=== PATIENT | male | born 1955 | race Caucasian/White ===

== ENCOUNTER 2019-07-03 08:00 | Outpatient (CLI) | payer MEDICARE, MEDICAID | END 2019-07-03 23:59 | LOC: LAB.R 08:00 | PROVIDERS: ATTEND Physician Assistant Medical | DX: R35.0 Frequency of micturition (principal) | CPT/HCPCS: 81001; 81003; 87086 ==

== ENCOUNTER 2019-07-03 08:00 | Outpatient (CLI) | payer MEDICARE, MEDICAID ==
[2019-07-03 19:14] LABS: BILIRUBIN,URINE NEGATIVE (NEGATIVE); GLUCOSE, URINE (UA) NEGATIVE (NEGATIVE); KETONES,URINE (UA) NEGATIVE (NEGATIVE); LEUKOCYTE ESTERASE, URINE TRACE (NEGATIVE); NITRITE,URINE NEGATIVE (NEGATIVE); OCCULT BLOOD,URINE LARGE (NEGATIVE); PROTEIN,URINE NEGATIVE (NEGATIVE); UROBILINOGEN,URINE 0.2 (NORMAL) E.U./dL (NORMAL)
[2019-07-03 20:12] LABS: AMORPHOUS SEDIMENT,UR Moderate /LPF; BACTERIA,URINE Rare /HPF (None Seen); CLARITY,URINE CLOUDY (CLEAR); SQUAMOUS EPITHELIAL CELL,UR NONE SEEN (<= Few)
== END 2019-07-03 23:59 ==
LOC: LAB.R 08:00
PROVIDERS: ATTEND Physician Assistant Medical
DX: R35.0 Frequency of micturition (principal)
CPT/HCPCS: 81001; 87086

== ENCOUNTER 2019-07-05 17:16 | Emergency (ER) | payer MEDICARE, MEDICAID ==
[2019-07-05 17:32] VITALS: BP 122/86
[2019-07-05 17:45] LABS: BILIRUBIN,URINE NEGATIVE (NEGATIVE); GLUCOSE, URINE (UA) NEGATIVE (NEGATIVE); KETONES,URINE (UA) NEGATIVE (NEGATIVE); LEUKOCYTE ESTERASE, URINE NEGATIVE (NEGATIVE); NITRITE,URINE NEGATIVE (NEGATIVE); OCCULT BLOOD,URINE LARGE (NEGATIVE); PROTEIN,URINE NEGATIVE (NEGATIVE); UROBILINOGEN,URINE 1 (NORMAL) E.U./dL (NORMAL)
[2019-07-05 17:50] LABS: CLARITY,URINE CLOUDY (CLEAR)
--- NOTE | 2019-07-05 17:58 | ED Physician Documentation ---
History of Present Illness - Stated complaint Stated Complaint: NOT EATING/MHE - Chief complaint Chief Complaint: MHE - History obtained from History obtained from: Patient - History of Present Illness Timing: Unknown Pain level max: 0 Pain level now: 0 - Additonal information Additional information: Patient is a 64-year-old male who lives in an adult family home. He states that he has a history of throat cancer. His caregiver came into the triage area, dropped him off and told the hotel front desk clerk that they are concerned that he is not sleeping well and eating normally. He says that he does not like the food and it tastes like there is "[place]" in it. He denies feeling suicidal or homicidal. Denies any hallucinations. He states that he is on no medications. Nothing makes it better or worse. The caregiver left the emergency department immediately after triage. No further history is available to me at this time. The caregiver came back and states that she is mainly concerned that he is dehydrated. He is not homicidal or suicidal. He does seem more disinterested in activity recently. She states that he has very poor memory at baseline and there are no changes. He is not hallucinating. Nothing makes it better or worse. Review of Systems Ten Systems: 10 systems reviewed and negative Constitutional: denies: Fever, Chills Ears: denies: Ear pain Nose: denies: Rhinorrhea / runny nose, Congestion Respiratory: denies: Cough GI: denies: Abdominal Pain, Nausea, Vomiting, Diarrhea Skin: denies: Rash Musculoskeletal: denies: Neck pain, Back pain Neurologic: denies: Focal weakness, Numbness, Headache PD PAST MEDICAL HISTORY - Past Medical History Past Medical History: No - Past Surgical History Past Surgical History: No - Allergies Allergies/Adverse Reactions: Allergies Allergy/AdvReac Type Severity Reaction Status Date / Time No Known Drug Allergies Allergy Verified 07/05/19 17:26 - Living Situation Living Arrangement: reports: [facility] ([facility]) - Social History Does the pt smoke?: No Does the pt drink ETOH?: No Does the pt have substance abuse?: No PD ED PE NORMAL - Vitals Vital signs reviewed: Yes - General General: Alert and oriented X 3, No acute distress, Well developed/nourished - HEENT HEENT: Moist mucous membranes, Pharynx benign - Neck Neck: Supple, no meningeal sign - Cardiac Cardiac: RRR, Strong equal pulses - Respiratory Respiratory: No respiratory distress, Clear bilaterally - Abdomen Abdomen: Soft, Non tender, Non distended - Derm Derm: Warm and dry, No rash - Extremities Extremities: No edema - Neuro Neuro: Alert and oriented X 3 - Psych Psych: Normal mood, Normal affect Results - Vitals Vitals: Vital Signs - 24 hr 07/05/19 17:26 Temperature 36.5 C Heart Rate 79 Respiratory 14 Rate Blood Pressure 122/86 H O2 Saturation 100 Oxygen O2 Source Room air - Labs Labs: Laboratory Tests 07/05/19 07/05/19 07/05/19 17:30 17:30 18:22 WBC 8.6 RBC 4.52 L Hgb 12.6 L Hct 38.4 L MCV 85.0 MCH 27.9 MCHC 32.8 RDW 13.3 Plt Count 184 MPV 9.5 Neut # (Auto) 5.4 Lymph # (Auto) 2.2 [place] # (Auto) 0.6 Eos # (Auto) 0.0 Baso # (Auto) 0.1 Absolute Nucleated RBC 0.00 Nucleated RBC % 0.0 Sodium Potassium Chloride Carbon Dioxide Anion Gap BUN Creatinine Estimated GFR (MDRD) Glucose Calcium Total Bilirubin AST ALT Alkaline Phosphatase Total Protein Albumin Globulin Albumin/Globulin Ratio Lipase TSH Urine Color YELLOW Urine Clarity CLOUDY Urine pH 6.0 Ur Specific [place] >=1.030 H Urine Protein NEGATIVE Urine Glucose (UA) NEGATIVE Urine Ketones NEGATIVE Urine Occult Blood LARGE H Urine Nitrite NEGATIVE Urine Bilirubin NEGATIVE Urine Urobilinogen 1 (NORMAL) Ur Leukocyte Esterase NEGATIVE Urine RBC 6-10 H Urine WBC 0-3 Ur Squamous Epith Cells NONE SEEN Urine Bacteria None Seen Ur Microscopic Review INDICATED Urine Culture Comments NOT INDICATED Salicylates Urine Opiates Screen NEGATIVE Ur Oxycodone Screen NEGATIVE Urine Methadone Screen NEGATIVE Ur Propoxyphene Screen NEGATIVE Acetaminophen Ur Barbiturates Screen NEGATIVE Ur Tricyclics Screen NEGATIVE Ur Phencyclidine Scrn NEGATIVE Ur Amphetamine Screen NEGATIVE U Methamphetamines Scrn NEGATIVE U Benzodiazepines Scrn NEGATIVE Urine Cocaine Screen NEGATIVE U Cannabinoids Screen NEGATIVE Ethyl Alcohol 07/05/19 07/05/19 18:22 18:22 WBC RBC Hgb Hct MCV MCH MCHC RDW Plt Count MPV Neut # (Auto) Lymph # (Auto) [place] # (Auto) Eos # (Auto) Baso # (Auto) Absolute Nucleated RBC Nucleated RBC % Sodium 135 Potassium 4.2 Chloride 94 L Carbon Dioxide 24 Anion Gap 17.0 H BUN 26 H Creatinine 1.3 H Estimated GFR (MDRD) 55 L Glucose 111 H Calcium 10.0 Total Bilirubin 1.0 AST 82 H ALT 17 Alkaline Phosphatase 168 H Total Protein 8.3 H Albumin 4.2 Globulin 4.1 Albumin/Globulin Ratio 1.0 Lipase 32 TSH 1.60 Urine Color Urine Clarity Urine pH Ur Specific [place] Urine Protein Urine Glucose (UA) Urine Ketones Urine Occult Blood Urine Nitrite Urine Bilirubin Urine Urobilinogen Ur Leukocyte Esterase Urine RBC Urine WBC Ur Squamous Epith Cells Urine Bacteria Ur Microscopic Review Urine Culture Comments Salicylates < 6.0 Urine Opiates Screen Ur Oxycodone Screen Urine Methadone Screen Ur Propoxyphene Screen Acetaminophen < 10 L Ur Barbiturates Screen Ur Tricyclics Screen Ur Phencyclidine Scrn Ur Amphetamine Screen U Methamphetamines Scrn U Benzodiazepines Scrn Urine Cocaine Screen U Cannabinoids Screen Ethyl Alcohol < 5.0 PD MEDICAL DECISION MAKING - ED course Complexity details: reviewed results, re-evaluated patient, considered differential, d/w patient, d/w family ED course: Patient improved with IV fluids. No significant lab abnormalities. No indication for involuntary hold or commitment. Recommend that she have the DCR dispatched then they can evaluate him at the residence for further mental health issues. He should also follow-up with his doctor regarding his depression. This document was made in part using voice recognition software. While efforts are made to proofread this document, sound alike and grammatical errors may occur. Departure - Departure Disposition: 01 Home, Self Care Clinical Impression: Dehydration Condition: Good Instructions: ED Dehydration Follow-Up: Eliot Paul PA-C [Primary Care Provider] - Within 1 week Comments: Drink plenty of fluids at home. Return if you worsen. If there is a concern about mental health issues, you can call and have the [facility] dispatch a DCR for evaluation. He should also follow-up with his doctor, they may be able to do tele-psychiatry at the office. Discharge Date/Time: 07/05/19 19:18
[2019-07-05 18:05] LABS: MUDS CUTOFF CONCENTRATIONS CUTOFF CONC BELOW:
[2019-07-05 18:07] LABS: BACTERIA,URINE None Seen /HPF (None Seen); SQUAMOUS EPITHELIAL CELL,UR NONE SEEN (<= Few)
[2019-07-05] MEDS ORDERED: SODIUM CHLORIDE 0.9% 1,000 ML IV ONE (18:14)
[2019-07-05 18:25] LABS: AMPHETAMINE SCREEN,URINE NEGATIVE (NEGATIVE); BENZODIAZEPINES SCREEN, URINE NEGATIVE (NEGATIVE); COCAINE SCREEN URINE NEGATIVE (NEGATIVE); METHADONE SCREEN, URINE NEGATIVE (NEGATIVE); METHAMPHETAMINES SCREEN, URINE NEGATIVE (NEGATIVE); OPIATE SCREEN, URINE NEGATIVE (NEGATIVE); OXYCODONE SCREEN, URINE NEGATIVE (NEGATIVE); PROPOXYPHENE SCREEN, URINE NEGATIVE (NEGATIVE); TRICYCLIC ANTIDEPRESSANT,URINE NEGATIVE (NEGATIVE)
[2019-07-05 18:27] LABS: BASOPHILS # (AUTO) 0.1 10^3/uL (0.0-0.1); BASOPHILS % (AUTO) 0.6 %; EOSINOPHILS % (AUTO) 0.3 %; HGB - HEMOGLOBIN 12.6 g/dL (14.0-18.0); LYMPHOCYTES # (AUTO) 2.2 10^3/uL (1.5-3.5); LYMPHOCYTES % (AUTO) 25.6 %; MEAN CORPUSCULAR HEMOGLOBIN 27.9 pg (27.0-31.0); MEAN CORPUSCULAR HGB CONC 32.8 g/dL (32.0-36.0); MEAN PLATELET VOLUME 9.5 fL (7.4-11.4); MONOCYTES # (AUTO) 0.6 10^3/uL (0.0-1.0); MONOCYTES % (AUTO) 7.4 %; NEUTROPHILS # (AUTO) 5.4 10^3/uL (1.5-6.6); PLT - PLATELET COUNT 184 10^3/uL (130-450); RED BLOOD COUNT 4.52 10^6/uL (4.70-6.10); RED CELL DISTRIBUTION WIDTH 13.3 % (12.0-15.0); WHITE BLOOD COUNT 8.6 x10^3/uL (4.8-10.8)
[2019-07-05 18:43] LABS: ACETAMINOPHEN < 10 ug/mL (10-30); ALBUMIN 4.2 g/dL (3.2-5.5); ALKALINE PHOSPHATASE 168 IU/L (42-121); ALT ALANINE AMINOTRANSFERASE 17 IU/L (10-60); AST ASPARTATE AMINOTRANSFERASE 82 IU/L (10-42); BUN - BLOOD UREA NITROGEN 26 mg/dL (6-20); CARBON DIOXIDE - CO2 24 mmol/L (21-32); CHLORIDE 94 mmol/L (101-111); CREATININE 1.3 mg/dL (0.6-1.2); GFR - MDRD 55 (>89); GLUCOSE 111 mg/dL (70-100); LIPASE 32 U/L (22-51); SALICYLATE < 6.0 mg/dL; SODIUM 135 mmol/L (135-145); TOTAL PROTEIN 8.3 g/dL (6.7-8.2)
== END 2019-07-05 19:18 | disposition home or self-care (01) ==
LOC: ED 17:16
DX: E86.0 Dehydration (principal); F32.9 Major depressive disorder, single episode, unspecified
CPT/HCPCS: 36415; 80053; 80306; 80307; 80320; 80329; 81001; 81003; 83690; 84443; 85025; 87086; 99283; 99284

== ENCOUNTER 2019-07-15 09:42 | Outpatient (CLI) | payer MEDICARE, MEDICAID | END 2019-07-15 09:43 | disposition critical access hospital (66) | LOC: EMS 09:42 | PROVIDERS: ATTEND Surgery | DX: R46.89 Other symptoms and signs involving appearance and behavior (principal); S49.92XA Unspecified injury of left shoulder and upper arm, initial encounter; X58.XXXA Exposure to other specified factors, initial encounter ==

== ENCOUNTER 2019-07-15 09:45 | Emergency (ER) | payer MEDICARE, MEDICAID ==
[2019-07-15] MEDS ORDERED: SODIUM CHLORIDE 0.9% 1,000 ML IV ONE ×2 (10:08→15:00)
[2019-07-15] MEDS ORDERED: fentaNYL 100 MCG/2 ML VIAL IVP STA ×3 (10:22→17:46)
[2019-07-15 10:52] LABS: BASOPHILS % (AUTO) 0.5 %; EOSINOPHILS % (AUTO) 0.1 %; HGB - HEMOGLOBIN 10.5 g/dL (14.0-18.0); LYMPHOCYTES # (AUTO) 1.7 10^3/uL (1.5-3.5); LYMPHOCYTES % (AUTO) 19.4 %; MEAN CORPUSCULAR HEMOGLOBIN 26.9 pg (27.0-31.0); MEAN CORPUSCULAR HGB CONC 32.5 g/dL (32.0-36.0); MEAN CORPUSCULAR VOLUME 82.6 fL (80.0-94.0); MEAN PLATELET VOLUME 9.7 fL (7.4-11.4); MONOCYTES # (AUTO) 0.5 10^3/uL (0.0-1.0); MONOCYTES % (AUTO) 6.2 %; NEUTROPHILS # (AUTO) 5.8 10^3/uL (1.5-6.6); NEUTROPHILS % (AUTO) 67.2 %; PLT - PLATELET COUNT 115 10^3/uL (130-450); RED BLOOD COUNT 3.91 10^6/uL (4.70-6.10); RED CELL DISTRIBUTION WIDTH 14.2 % (12.0-15.0); WHITE BLOOD COUNT 8.7 x10^3/uL (4.8-10.8)
--- NOTE | 2019-07-15 10:58 | XRAY Report ---
Reason: pain/deformity Procedure Date: 07/15/2019 Accession Number: [id number] / [id number] Procedure: XR - Elbow 3 View LT CPT Code: Final Report FULL RESULT: EXAM: LEFT ELBOW RADIOGRAPHY EXAM DATE: 07/15/2019 10:46 AM. CLINICAL HISTORY: Pain/deformity. COMPARISON: None. TECHNIQUE: 3 views. FINDINGS: Bones: Displaced distal humerus shaft fracture. Joints: Normal. No effusion. No subluxation. Soft Tissues: Normal. No soft tissue swelling. IMPRESSION: 1. Displaced transverse distal humerus shaft fracture. 2. Possible nondisplaced fracture ulnar aspect coronoid process. RADIA
[2019-07-15 11:08] LABS: ALBUMIN 3.5 g/dL (3.2-5.5); ALBUMIN/GLOBULIN RATIO 1.1 (1.0-2.2); BILIRUBIN,TOTAL 0.8 mg/dL (0.2-1.0); CALCIUM 9.4 mg/dL (8.5-10.3); CREATININE 0.9 mg/dL (0.6-1.2); TOTAL PROTEIN 6.7 g/dL (6.7-8.2)
[2019-07-15 11:18] LABS: PLATELET ESTIMATE, MANUAL DECREASED (<130,000) (NORMAL); PLATELET MORPHOLOGY NORMAL APPEARANCE (NORMAL); RBC MORPHOLOGY (MULTIPLE) NORMAL APPEARANCE (NORMAL)
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
[2019-07-15] MEDS ORDERED: LORazepam 2 MG/ML VIAL IVP STA (11:22)
--- NOTE | 2019-07-15 12:58 | XRAY Report ---
Reason: LATERAL ONLY PER Procedure Date: 07/15/2019 Accession Number: [id number] / [id number] Procedure: XR - Elbow 2 View LT CPT Code: Final Report FULL RESULT: EXAM: LEFT ELBOW RADIOGRAPHY EXAM DATE: 07/15/2019 12:25 PM. CLINICAL HISTORY: LATERAL ONLY PER . COMPARISON: Left Elbow 4 views 1015 hrs. 07/15/2019.. TECHNIQUE: Lateral view of the elbow 1206 hrs. 07/15/2019. views. FINDINGS: Bones: Transfers fracture distal humerus shaft with 54 degrees ventral angulation of the fracture apex and 1 cm anterior displacement of the distal fracture fragment. Joints: Negative for dislocation elbow lateral view. Soft Tissues: Normal. No soft tissue swelling. IMPRESSION: Transverse fracture distal left humerus shaft with 54 degree ventral angulation of the fracture apex and 1 cm anterior displacement of the distal fracture fragment. RADIA
[2019-07-15 15:21] LABS: MUDS CUTOFF CONCENTRATIONS CUTOFF CONC BELOW:
[2019-07-15 15:25] LABS: GLUCOSE, URINE (UA) NEGATIVE (NEGATIVE); KETONES,URINE (UA) TRACE mg/dL (NEGATIVE); LEUKOCYTE ESTERASE, URINE NEGATIVE (NEGATIVE); NITRITE,URINE NEGATIVE (NEGATIVE); OCCULT BLOOD,URINE LARGE (NEGATIVE); PH,URINE 5.5 PH (5.0-7.5); PROTEIN,URINE NEGATIVE (NEGATIVE); UROBILINOGEN,URINE 0.2 (NORMAL) E.U./dL (NORMAL)
[2019-07-15 15:30] LABS: CLARITY,URINE HAZY (CLEAR)
[2019-07-15 15:31] LABS: BILIRUBIN,URINE NEGATIVE (NEGATIVE); ICTOTEST,URINE NEGATIVE
[2019-07-15 15:38] LABS: AMPHETAMINE SCREEN,URINE NEGATIVE (NEGATIVE); BACTERIA,URINE Rare /HPF (None Seen); BENZODIAZEPINES SCREEN, URINE NEGATIVE (NEGATIVE); CASTS, URINE 3-5 Hyaline Casts /LPF; COCAINE SCREEN URINE NEGATIVE (NEGATIVE); EPITHELIAL CELLS,UR FEW Transitional /HPF (<= Few); METHADONE SCREEN, URINE NEGATIVE (NEGATIVE); METHAMPHETAMINES SCREEN, URINE NEGATIVE (NEGATIVE); OPIATE SCREEN, URINE NEGATIVE (NEGATIVE); OXYCODONE SCREEN, URINE NEGATIVE (NEGATIVE); SQUAMOUS EPITHELIAL CELL,UR FEW Squamous (<= Few); TRICYCLIC ANTIDEPRESSANT,URINE NEGATIVE (NEGATIVE)
[2019-07-15 15:39] LABS: PROPOXYPHENE SCREEN, URINE NEGATIVE (NEGATIVE)
[2019-07-15 17:52] VITALS: BP 118/82
--- NOTE | 2019-07-16 16:23 | MISCELLANEOUS PROVIDER NOTE ---
Miscellaneous Provider Note - - Note: Called by Ary Cardenas MD the emergency department regarding this patient's humeral fracture. We talked briefly about the nature of the injury and the unclear mechanism of injury. We talked about treatment and per Dr. Cardenas there is no symptoms or signs indicative of emergent orthopedic intervention.She notes that he is neurovascularly intact and denies any signs of compartment syndrome or other emergent condition. To clarify that which is noted in the assessment and plan of the emergency medicine physician documentation, we are happy to perform operative intervention for this patient at an appropriate time though currently we do not have full orthopedic coverage. As such performing surgery today could leave the patient uncovered from an orthopedic perspective in the coming days. This would be inappropriate especially should any postoperative complications or need for additional intervention arise. Given the patient's reported social situation and mental status I do think it would also be quite likely that he would be admitted to the hospital for a number of days. We indicated that we are happy to participate in the care at what ever level requested and would be following to see if the patient was admitted to this hospital. Of note, documentation reviewed and patient transferred as indicated.
== END 2019-07-15 18:28 | disposition short-term general hospital (02) ==
LOC: EDUNIT# → ED 09:45
DX: S42.322A Displaced transverse fracture of shaft of humerus, left arm, initial encounter for closed fracture (principal); X58.XXXA Exposure to other specified factors, initial encounter; F03.90 Unspecified dementia, unspecified severity, without behavioral disturbance, psychotic disturbance, mood disturbance, and anxiety
CPT/HCPCS: 36415; 73070; 73080; 80053; 81001; 82140; 82272; 83605; 83690; 85025; 87040; 93005; 96361; 96374; 96375; 96376; 99285; J2060; 80306; 81003; 87086

== ENCOUNTER 2019-07-15 18:17 | Outpatient (CLI) | payer MEDICARE, MEDICAID | END 2019-07-15 18:18 | disposition short-term general hospital (02) | LOC: EMS 18:17 | PROVIDERS: ATTEND Surgery | DX: S42.302A Unspecified fracture of shaft of humerus, left arm, initial encounter for closed fracture (principal); W19.XXXA Unspecified fall, initial encounter; F03.90 Unspecified dementia, unspecified severity, without behavioral disturbance, psychotic disturbance, mood disturbance, and anxiety; S49.92XA Unspecified injury of left shoulder and upper arm, initial encounter; X58.XXXA Exposure to other specified factors, initial encounter | CPT/HCPCS: A0425; A0427; A0428 ==

== ENCOUNTER 2019-07-30 13:26 | Outpatient (CLI) | payer MEDICARE, MEDICAID ==
[2019-07-30 18:30] LABS: BASOPHILS # (AUTO) 0.1 10^3/uL (0.0-0.1); BASOPHILS % (AUTO) 0.5 %; EOSINOPHILS % (AUTO) 0.4 %; HGB - HEMOGLOBIN 8.8 g/dL (14.0-18.0); LYMPHOCYTES # (AUTO) 2.8 10^3/uL (1.5-3.5); LYMPHOCYTES % (AUTO) 27.7 %; MEAN CORPUSCULAR HEMOGLOBIN 28.3 pg (27.0-31.0); MEAN CORPUSCULAR VOLUME 91.3 fL (80.0-94.0); MEAN PLATELET VOLUME 11.1 fL (7.4-11.4); MONOCYTES # (AUTO) 0.4 10^3/uL (0.0-1.0); MONOCYTES % (AUTO) 3.9 %; NEUTROPHILS % (AUTO) 59.7 %; PLT - PLATELET COUNT 164 10^3/uL (130-450); RED BLOOD COUNT 3.11 10^6/uL (4.70-6.10); RED CELL DISTRIBUTION WIDTH 18.4 % (12.0-15.0)
[2019-07-30 19:05] LABS: DIFFERENTIAL COMMENT MANUAL=AUTO DIFF; PLATELET ESTIMATE, MANUAL NORMAL (130-450,000) (NORMAL); PLATELET MORPHOLOGY NORMAL APPEARANCE (NORMAL)
[2019-07-30 19:24] LABS: % IRON SATURATION 20 % (20-50); IRON 60 ug/dL (45-182); TOTAL IRON BINDING CAPACITY 301 ug/dL (250-450); TRANSFERRIN 215 mg/dL (180-329)
[2019-07-30 19:26] LABS: FERRITIN 880.5 ng/mL (23.9-336.2)
[2019-07-30 19:30] LABS: FOLATE 5.08 ng/mL (5.90 - >24.8)
== END 2019-07-30 23:59 | disposition home or self-care (01) ==
LOC: LAB.N 13:26
PROVIDERS: ATTEND Physician Assistant Medical
DX: E55.9 Vitamin D deficiency, unspecified (principal); C80.1 Malignant (primary) neoplasm, unspecified
CPT/HCPCS: 36415; 82306; 82607; 82728; 82746; 83540; 84466; 85025